=== PATIENT | male | born 1955 | race Caucasian/White ===

== ENCOUNTER 2018-10-28 13:41 | Outpatient (CLI) | payer BC ==
--- NOTE | 2018-10-28 14:13 | ULT ---
Exam: Right upper quadrant ultrasound: HISTORY: Abdominal pain COMPARISON: None FINDINGS: Visualized liver:Not well seen, Gallbladder:Multiple mobile echogenic foci suspicious for small stones without wall thickening or per icholecystic fluid. Common bile duct:Within normal limits. The visualized pancreas and right kidney are unremarkable. No evidence for abscess or abnormal fluid collection in the right upper quadrant. IMPRESSION: Multiple mobile gallbladder foci suspicious for small gallstones. Somewhat poorly demonstrated liver. No ductal dilatation.
== END 2018-10-28 13:42 | disposition home or self-care (01) ==
LOC: SCSULT 13:41
PROVIDERS: ATTEND Nurse Practitioner Family
DX: R10.13 Epigastric pain (principal)
CPT/HCPCS: 36415; 76700; 76705; 80053; 84439; 84443; 85025

== ENCOUNTER 2018-11-04 15:51 | Outpatient (CLI) | payer BC ==
--- NOTE | 2018-11-04 17:02 | RAD ---
EXAM: Chest 2 views: HISTORY: Preoperative radiograph COMPARISON: 01/09/2009 FINDINGS: There is a normal-sized cardiomediastinal silhouette. There is no evidence of consolidation, mass, or pleural effusion. Degenerative changes are seen in the spine. IMPRESSION: No evidence of acute cardiopulmonary disease
--- NOTE | 2018-11-06 21:21 | EKG ---
Test Reason : Blood Pressure : / mmHG Vent. Rate : 065 BPM Atrial Rate : 065 BPM P-R Int : 220 ms QRS Dur : 092 ms QT Int : 370 ms P-R-T Axes : 076 079 065 degrees QTc Int : 384 ms Sinus rhythm with 1st degree A-V block Otherwise normal ECG When compared with ECG of 04-SEP-2015 12:45, No significant change was found Confirmed by Jaclyn MORGAN ([id number]) on 11/06/2018 9:20:51 PM Referred By: MAC Confirmed By:Jaclyn MORGAN
== END 2018-11-04 15:52 | disposition home or self-care (01) ==
LOC: LABBT 15:51
PROVIDERS: ATTEND Specialist
DX: Z01.818 Encounter for other preprocedural examination (principal)
CPT/HCPCS: 71046; 93005; 93010

== ENCOUNTER 2018-11-10 09:42 | Day surgery (SDC) | payer BC ==
[2018-11-04 16:21] VITALS: BMI 32.4
[2018-11-10] MEDS ORDERED: Ketorolac Tromethamine 30 MG/ML VIAL ONE (10:39)
[2018-11-10] MEDS ORDERED: Levofloxacin 500 mg/D5W 100 ml Premix Bag ONE (10:39)
[2018-11-10] MEDS ORDERED: Bupivacaine/Epinephrine 0.25% 30 ML VIAL ONE (12:56)
[2018-11-10] MEDS ORDERED: Midazolam HCl 2 mg/2 ml Vial ONE (13:08)
[2018-11-10] MEDS ORDERED: Fentanyl 250 MCG/5 ML VIAL ONE (13:13)
[2018-11-10] MEDS ORDERED: Glycopyrrolate 0.2 MG/ML 5 ML SYRINGE ONE (14:12)
[2018-11-10] MEDS ORDERED: ePHEDrine 50 MG/ML VIAL ONE (14:12)
[2018-11-10] MEDS ORDERED: Lidocaine 1% PF 5 ML VIAL ONE (14:12)
[2018-11-10] MEDS ORDERED: Ondansetron PF 4 MG/2 ML Vial ONE (14:12)
[2018-11-10] MEDS ORDERED: Rocuronium Bromide 10 MG/ML (10ML VIAL) ONE (14:12)
[2018-11-10] MEDS ORDERED: PROPOFOL 200 MG/20 ML VIAL ONE (14:12)
[2018-11-10] MEDS ORDERED: HYDROcodone/Acetaminophen 5/325 mg Tablet ONE (15:27)
--- NOTE | 2018-11-10 16:58 | OP ---
DATE OF PROCEDURE: 11/10/2018 PREOPERATIVE DIAGNOSIS: Symptomatic cholelithiasis. POSTOPERATIVE DIAGNOSIS: Symptomatic cholelithiasis. OPERATION PERFORMED: Laparoscopic cholecystectomy. ANESTHESIA: General endotracheal. INDICATIONS: The patient is a 63-year-old white male. He presents with symptoms referable to his gallbladder and ultrasound proven cholelithiasis. He was taken to the operative room at this time for laparoscopic cholecystectomy. PROCEDURE IN DETAIL: Informed consent was obtained. The patient was taken to the operating room where general endotracheal anesthesia was obtained with the patient in the supine position. The abdomen was prepped with Betadine and draped in the usual sterile fashion. 0.25% Marcaine with epinephrine was infiltrated below the umbilicus and a 10 mm infraumbilical incision was created. A Veress needle was passed through this incision into the peritoneal cavity. A pneumoperitoneum was established using carbon dioxide up to a pressure of 15 mmHg. Local anesthetic was infiltrated and 3 additional 5 mm right upper quadrant incisions were created. Through the mid incision, a 5 mm port was passed into the peritoneal cavity. The camera was passed through this port and under direct vision, an 11 port was passed through the infraumbilical incision. The camera was replaced through this port, and under direct vision, 2 additional 5 mm ports were passed through the incisions already created. The gallbladder was grasped and retracted in a cephalad direction. Minimal adhesions were bluntly stripped away from the apex of the gallbladder, and the apex was retracted laterally and inferiorly. Careful dissection was carried out to the apex of the gallbladder to identify the cystic duct and cystic artery. These were each carefully dissected circumferentially. The duct was of normal caliber. Both the duct and the artery were divided between clips, leaving 2 on the side to remain within the abdomen. The gallbladder was then dissected out of the gallbladder fossa using electrocautery and removed through the infraumbilical port site. The fascia was closed with 0 Vicryl suture and a GraNee needle. The right upper quadrant was inspected and irrigated. All irrigant was aspirated. All ports and instruments were removed under direct vision. Pneumoperitoneum was carefully evacuated. Additional local anesthetic was infiltrated into each port site. The skin edges were approximated with 4-0 Monocryl subcuticular sutures, and Dermabond was placed externally. There were no complications. The patient tolerated the procedure well and was taken to the recovery room in stable condition. FINDINGS: The patient's gallbladder was without any acute inflammation. There were some pericholecystic adhesions, that were taken down uneventfully. The patient's duct was small and noninflamed. Cholangiogram was not obtained. Preoperative liver function tests were within normal limits as well. There was an area of some bleeding within the liver fossa toward the inferior aspect of the liver. This was all controlled appropriately with electrocautery. The wound was meticulously hemostatic at the time of closure. There were no complications. Blood loss was negligible. The patient tolerated the procedure well and was taken to recovery room in stable condition. Job ID: [id number]
== END 2018-11-10 17:17 | disposition home or self-care (01) ==
LOC: SDC 09:42
PROVIDERS: ATTEND Specialist
PROC: 0FT44ZZ Resection of Gallbladder, Percutaneous Endoscopic Approach (ICD-10-PCS; principal; 2018-11-10)
DX: K81.1 Chronic cholecystitis (principal); K82.8 Other specified diseases of gallbladder; E78.5 Hyperlipidemia, unspecified; I10 Essential (primary) hypertension; K21.9 Gastro-esophageal reflux disease without esophagitis; F17.290 Nicotine dependence, other tobacco product, uncomplicated; Z79.82 Long term (current) use of aspirin; Z79.899 Other long term (current) drug therapy; Z88.0 Allergy status to penicillin; Z88.8 Allergy status to other drugs, medicaments and biological substances; Z98.890 Other specified postprocedural states
CPT/HCPCS: 88304; J0131; J1885; J1956; J2001; J2250; J2405; J2704; J3010; J3490